=== PATIENT | female | born 1975 | race Caucasian/White ===

== ENCOUNTER → 2018-01-05 12:52 | Outpatient (CLI) | payer OTHER, SELFPAY ==
--- NOTE | 2018-01-05 13:00 | MM_ITS ---
MM Dig mamm DX unilat RT CAD, US breast RT complete COMPARISON: 07/06/17 and 06/17/2017 INDICATION: Follow-up abnormal mammogram ORDERING PHYSICIAN: Henry Sinha MD PATIENT AGE: 42 years TECHNIQUE: Standard images performed along with implant displaced views and spot compression views and right breast ultrasound FINDINGS: There is dense fibroglandular tissue which decreases the sensitivity of mammography. Previously there was an area of asymmetric density in the superior aspect of the right breast on the implant displaced view persisting on the spot compression views. This has a similar appearance on today's exam felt to represent overlying fibroglandular tissue. No discrete mass or malignant appearing microcalcification. Right breast ultrasound: No malignant appearing mass apparent. No cystic or solid lesions evident. Previously noted area of decreased echogenicity in the outer aspect of the right breast is not demonstrated on today's exam. IMPRESSION: Benign findings, no evidence of malignancy BI-RADS Category: 2 Benign Finding(s) RECOMMENDED FOLLOW-UP: 6M - 6 MONTH FOLLOW-UP Recommend continued screening mammogram June 2018 (A letter has been sent to the patient regarding results of the study.)
== END ==
PROVIDERS: PCP Family Medicine; Visit Provider Family Medicine
DX: R92.8 Other abnormal and inconclusive findings on diagnostic imaging of breast (principal)
CPT/HCPCS: 76641; 77065